=== PATIENT | female | born 1945 | race Two or more races ===

== ENCOUNTER 2022-03-21 17:58 | Emergency (ER) | payer OTHER ==
[~2022-03-21] VITALS: Ht 149.9 cm; Wt 70.3 kg
[2022-03-21] MEDS ORDERED: AVAPRO150 MG PO (18:41)
[2022-03-21] MEDS ORDERED: ACTOS30 MG (18:42)
[2022-03-21] MEDS ORDERED: EZALLOR SPRINKL10 MG PO (18:43)
[2022-03-21] MEDS ORDERED: METFORMIN HCL500 M3 PO (18:43)
[2022-03-21] MEDS ORDERED: PRESERVISION A1 EAC4 PO (18:43)
[2022-03-21] MEDS ORDERED: BACTRIM DS TAB1 EACH PO (19:06)
[2022-03-21] MEDS ORDERED: DICLOFENAC SODI75 MG PO (19:06)
== END 2022-03-22 | disposition home or self-care (01) ==
LOC: ER 17:58
DX: L03.011 Cellulitis of right finger (principal); E11.9 Type 2 diabetes mellitus without complications; Z79.84 Long term (current) use of oral hypoglycemic drugs; I10 Essential (primary) hypertension

== ENCOUNTER 2023-12-24 12:37 | Emergency (ER) | payer OTHER ==
[~2023-12-24] VITALS: Ht 149.9 cm; Wt 108.9 kg
[~2023-12-24 12:37] MED LIST: ACTOS30 MG; AVAPRO150 MG PO; BACTRIM DS TAB1 EACH PO; DICLOFENAC SODI75 MG PO; EZALLOR SPRINKL10 MG PO; METFORMIN HCL500 M3 PO; PRESERVISION A1 EAC4 PO
[2023-12-24] MEDS ORDERED: ACID REDUCER20 M1 (13:28)
[2023-12-24] MEDS ORDERED: PRESERVISION A1 EAC1 (13:28)
[2023-12-24] MEDS ORDERED: AZOR 10-20 MG1 EACH (13:28)
[2023-12-24] MEDS ORDERED: MONTELUKAST SODI4 M1 PO (13:29)
[2023-12-24] MEDS ORDERED: ZOLOFT25 MG PO (13:29)
[2023-12-24] MEDS ORDERED: PEPCID AC20 MG PO (13:29)
[2023-12-24] MEDS ORDERED: ACETAMINOPHEN 500 MG GEL..CAP PO ONE ×2 (15:28→15:30)
[2023-12-24 16:40] LABS: HEMATOCRIT 39.2 % (36.0-45.00); HEMOGLOBIN 12.9 g/dL (12.0-15.00); MEAN CELL VOLUME 77.8 fL (80.00-100.00); MEAN CORPUSCULAR HEMOGLOBIN 25.6 pg (27.00-32.0); MEAN CORPUSCULAR HGB CONC 32.9 g/dl (32.0-36.0); PLATELET COUNT 288 K/uL (150-450); RED BLOOD COUNT 5.04 M/uL (4.00-6.00); RED CELL DISTRIBUTION WIDTH 15.8 % (11.5-14.5)
[2023-12-24 16:49] LABS: ALBUMIN 4.2 gm/dL (3.4-5.0); BILIRUBIN TOTAL 0.57 mg/dL (0.3-1.2); CALCIUM 9.9 mg/dL (8.5-10.1); CREATININE SERUM 0.69 mg/dL (0.55-1.02); GFR 81.86; GLOBULINA 4.1 G/DL (2.4-3.5); POTASSIUM 3.54 mEq/L (3.5-5.1); TOTAL PROTEIN 8.3 gm/dL (6.4-8.2)
== END 2023-12-24 17:51 | disposition home or self-care (01) ==
LOC: ER 12:39
PROVIDERS: General Practice
DX: K29.70 Gastritis, unspecified, without bleeding (principal); B34.9 Viral infection, unspecified; R10.9 Unspecified abdominal pain; Z20.822 Contact with and (suspected) exposure to COVID-19; I10 Essential (primary) hypertension; E11.9 Type 2 diabetes mellitus without complications; Z79.84 Long term (current) use of oral hypoglycemic drugs; Z88.5 Allergy status to narcotic agent; Z91.011 Allergy to milk products

== ENCOUNTER → 2024-10-23 | Emergency (ER) | payer OTHER ==
[~2024-10-23] VITALS: Ht 154.9 cm; Wt 72.6 kg
[~2024-10-23] MED LIST changes: +ACID REDUCER20 M1; +ASPIRIN 325 MG TABLET PO ONE; +AZOR 10-20 MG1 EACH; +FOCALIN2.5 MG PO; +MONTELUKAST SODI4 M1 PO; +PEPCID AC20 MG PO; +PRESERVISION A1 EAC1; +PRESERVISION A1 EAC7 PO; +TURMERIC 500 M1 EACH; +ZOLOFT25 MG PO
[2024-10-23 13:14] LABS: BASO % 0.3 % (0.1-1.2); EOS # 0.17 (0.04-0.54); EOS % 2.9 % (0.7-7.0); HEMATOCRIT 35.8 % (34.1-44.9); HEMOGLOBIN 11.4 g/dL (11.2-15.7); LYMPH # 1.77 (1.18-3.74); LYMPH % 30.4 % (19.3-53.1); MEAN CORPUSCULAR HEMOGLOBIN 24.4 pg (25.6-32.2); MONO # 0.54 (0.24-0.82); MONO % 9.3 % (4.7-12.5); NEUT # 3.32 (1.56-6.13); NEUT % 56.9 % (34.0-71.1); PLATELET COUNT 257 K/uL (163-369); RED BLOOD COUNT 4.68 M/uL (3.93-5.22); RED CELL DISTRIBUTION WIDTH 15.8 % (11.6-14.4)
[2024-10-23 13:40] LABS: ALBUMIN 3.4 gm/dL (3.4-5.0); BILIRUBIN TOTAL 0.23 mg/dL (0.3-1.2); CALCIUM 9.2 mg/dL (8.5-10.1); CREATININE SERUM 0.69 mg/dL (0.55-1.02); GFR 81.65; GLOBULINA 3.5 G/DL (2.4-3.5); POTASSIUM 4.19 mEq/L (3.5-5.1); TOTAL PROTEIN 6.9 gm/dL (6.4-8.2)
== END | disposition left against medical advice (07) ==
LOC: ER 11:21
PROVIDERS: General Practice
DX: R07.89 Other chest pain (principal); Z88.5 Allergy status to narcotic agent; Z91.011 Allergy to milk products